=== PATIENT | male | born 1935 | race Caucasian/White ===

== ENCOUNTER 2017-11-30 06:07 | Day surgery (SDC) | payer MEDICARE, OTHER ==
[2017-11-30] MEDS ORDERED: Sodium Chloride 0.9% 10 ML Syringe FLUSH PRN (06:21)
[2017-11-30] MEDS ORDERED: Lidocaine 1%/Sod Bicarbonate in NS 8.4% 1 ML Syringe IDERM PRN (06:21)
[2017-11-30] MEDS ORDERED: Iodine/Sodium Iodide 2% Tincture 30 ML Bottle ONE (06:26)
[2017-11-30] MEDS ORDERED: ceFAZolin 1 GM Vial ONE ×2 (06:26→06:35)
[2017-11-30] MEDS ORDERED: Propofol 200 MG/20 ML SDV ONE ×2 (06:28→08:33)
[2017-11-30] MEDS ORDERED: Ketamine 500 mg/10 ML MDV ONE (06:29)
[2017-11-30] MEDS ORDERED: fentaNYL 100 MCG/2 ML SDV ONE (06:29)
[2017-11-30] MEDS ORDERED: Cyclobenzaprine 10 MG Tab PO PRN (06:42)
[2017-11-30] MEDS ORDERED: Magnesium Hydroxide 400 MG/5 ML Susp 30 ML Cup PO PRN (06:43)
[2017-11-30] MEDS ORDERED: Naloxone 0.4 MG/ML SDV IVPUSH PRN (06:43)
[2017-11-30] MEDS ORDERED: Morphine 2 MG/ML Syringe IVPUSH PRN (06:43)
[2017-11-30] MEDS ORDERED: Sennosides 8.6 MG Tab PO PRN (06:43)
[2017-11-30] MEDS ORDERED: Ondansetron 4 MG/2 ML SDV IVPUSH PRN ×2 (06:43→09:12)
[2017-11-30] MEDS ORDERED: Bisacodyl 5 MG Tab PO PRN (06:43)
[2017-11-30] MEDS: Lactated Ringers 1,000 ML IV SCH ×3 (06:45→15:37)
--- NOTE | 2017-11-30 07:02 | PCM.PREANE ---
Preanesthetic Assessment - Procedure Proposed Procedure: Right TKR - Anesthesia/Transfusion/Family Hx Anesthesia History: No Prior Anesthesia Family History of Anesthesia Reaction: No Transfusion History: No Prior Transfusion(s) - Review of Systems General: No Symptoms Pulmonary: No Symptoms Cardiovascular: Other (HTN, HLD) Gastrointestinal: No Symptoms Neurological: No Symptoms Other: Reports: Diabetes (DM2- contorlled with oral meds) - Physical Assessment NPO Status Date: 11/29/17 NPO Status Time: 23:00 Pulse: 57 O2 Sat by Pulse Oximetry: 93 Respiratory Rate: 16 Blood Pressure: 153/82 Temperature: 36.3 C Height: 1.78 m Weight: 112 kg ASA Class: 2 Mental Status: Alert & Oriented x3 Airway Class: Mallampati = 2 Dentition: Reports: Missing Tooth/Teeth (missing a few molars ) Thyro-Mental Finger Breadths: 3 Mouth Opening Finger Breadths: 3 ROM/Head Extension: Full Lungs: Clear to Auscultation, Normal Respiratory Effort Cardiovascular: Regular Rate, Regular Rhythm - Lab Values: Laboratory Last Values POC Glucose 103 mg/dL (83-110) 11/30/17 06:43 MRSA (PCR) Negative 11/13/17 13:16 - Allergies Allergies/Adverse Reactions: Allergies Allergy/AdvReac Type Severity Reaction Status Date / Time No Known Allergies Allergy Verified 11/27/17 15:30 - Blood Blood Available: No Product(s) Available: None - Anesthesia Plan Pre-Op Medication Ordered: None - Acknowledgements Anesthesia Type Planned: Spinal, Regional Block (post operative adductor canal block ) Pt an Appropriate Candidate for the Planned Anesthesia: Yes Alternatives and Risks of Anesthesia Discussed w Pt/Guardian: Yes Pt/Guardian Understands and Agrees with Anesthesia Plan: Yes PreAnesthesia Questionnaire HEENT History: Reports: None Cardiovascular History: Reports: High Cholesterol, Hypertension Respiratory History: Reports: Other (See Below) Other Respiratory History: dypsnea on exertion Gastrointestinal History: Reports: None Genitourinary History: Reports: None SOC[employer]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 MARKETER History: Reports: None Musculoskeletal History: Reports: Gout Neurological History: Reports: None Psychiatric History: Reports: None Endocrine/Metabolic History: Reports: Diabetes, Type II Hematologic History: Reports: None Immunologic History: Reports: None Oncologic (Cancer) History: Reports: None Dermatologic History: Reports: Other (See Below) Other Dermatologic History: seborrheic keratosis - Past Surgical History Head Surgeries/Procedures: Reports: None HEENT Surgical History: Reports: None Cardiovascular Surgical History: Reports: None Respiratory Surgical History: Reports: None GI Surgical History: Reports: Colonoscopy Male Surgical History: Reports: Vasectomy Endocrine Surgical History: Reports: None Neurological Surgical History: Reports: None Musculoskeletal Surgical History: Reports: None Oncologic Surgical History: Reports: None Dermatological Surgical History: Reports: None - SUBSTANCE USE Smoking Status *Q: Former Smoker Recreational Drug Use History: No - HOME MEDS Home Medications: Home Meds Aspirin [Adult Aspirin] 81 mg PO DAILY 11/27/17 [History] Cinnamon Bark [Cinnamon] 500 mg PO DAILY 11/27/17 [History] Enalapril [Vasotec] 2.5 mg PO DAILY 11/27/17 [History] Fenofibrate Nanocrystallized [Fenofibrate] 145 mg PO DAILY 11/27/17 [History] Furosemide 40 mg PO BID 11/27/17 [History] Ginkgo Biloba 40 mg PO DAILY 11/27/17 [History] Gluc/Aurelio-Msm#1/Vit C/Isaías/Bor [Ppfdbtl-Nqysw-GHH Complex Cplt] 1 tab PO BID [History] Linagliptin [Tradjenta] 5 mg PO DAILY 11/27/17 [History] Niacin 50 mg PO DAILY 11/27/17 [History] Pravastatin Sodium 40 mg PO DAILY 11/27/17 [History] glipiZIDE [Glipizide Xl] 20 mg PO BID 11/27/17 [History] metFORMIN HCl [Metformin HCl] 1,000 mg PO BID 11/27/17 [History] - CURRENT (IN HOUSE) MEDS Current Meds: Current Medications Bisacodyl (Dulcolax) 5 mg PO DAILY PRN PRN Reason: Constipation Morphine Sulfate 8 mg/Epinephrine HCl 0.3 mg/Cefuroxime Sodium 750 mg/Ketorolac Tromethamine 30 mg/Sodium Chloride 27.9 ml 0 mg .XX ONETIME ONE Stop: 11/30/17 06:43 Cyclobenzaprine HCl (Flexeril) 10 mg PO TID PRN PRN Reason: Spasms Docusate Sodium (Colace) 100 mg PO BID [facility] Famotidine (Pepcid) 20 mg PO Q12H [facility] Lactated Ringer's (Ringers, Lactated) 1,000 mls @ 125 mls/hr IV ASDIRECTED [facility] Cefazolin Sodium/Dextrose 2 gm (/ Premix) 50 mls @ 100 mls/hr IV Q8H [facility] Stop: 11/30/17 23:14 Ketorolac Tromethamine (Toradol) 15 mg IVPUSH Q6H PRN PRN Reason: Pain Lidocaine/Sodium Bicarbonate (Buffered Lidocaine 1% In Ns 8.4%) 0.25 ml IDERM ONETIME PRN PRN Reason: Prior to IV Start Magnesium Hydroxide (Milk Of Magnesia) 30 ml PO BID PRN PRN Reason: Constipation Morphine Sulfate (Morphine) 2 mg IVPUSH Q2H PRN PRN Reason: Breakthrough Pain Naloxone HCl (Narcan) 0.1 mg IVPUSH Q5M PRN PRN Reason: Oversedation Ondansetron HCl (Zofran) 4 mg IVPUSH Q6H PRN PRN Reason: Nausea/Vomiting Oxycodone/Acetaminophen (Percocet 325-5 Mg) 1 - 2 tab PO Q4H PRN PRN Reason: Pain Rivaroxaban (Xarelto) 10 mg PO DAILY [facility] Senna (Senna) 8.6 mg PO BID PRN PRN Reason: Constipation Sodium Chloride (Saline Flush) 10 ml FLUSH ASDIRECTED PRN PRN Reason: Keep Vein Open Discontinued Medications Bupivacaine HCl (Marcaine 0.25%) Confirm Administered Dose 30 ml .ROUTE .STK- MED ONE Stop: 11/30/17 06:27 Cefazolin Sodium (Ancef) Confirm Administered Dose 2 gm .ROUTE .STK-MED ONE Stop: 11/30/17 06:27 Cefazolin Sodium (Ancef) Confirm Administered Dose 2 gm .ROUTE .STK-MED ONE Stop: 11/30/17 06:36 Fentanyl (Sublimaze) Confirm Administered Dose 100 mcg .ROUTE .STK-MED ONE Stop: 11/30/17 06:30 Iodine (Iodine 2% Mild Tincture) Confirm Administered Dose 30 ml .ROUTE .STK- MED ONE Stop: 11/30/17 06:27 Ketamine HCl (Ketalar) Confirm Administered Dose 500 mg .ROUTE .STK-MED ONE Stop: 11/30/17 06:30 Propofol (Diprivan 20 Ml) Confirm Administered Dose 400 mg .ROUTE .STK-MED ONE Stop: 11/30/17 06:29 Tranexamic Acid (Cyklokapron) Confirm Administered Dose 1,000 mg .ROUTE .STK- MED ONE Stop: 11/30/17 06:27 Vancomycin HCl (Vancomycin) Confirm Administered Dose 1 gm .ROUTE .STK-MED ONE Stop: 11/30/17 06:27
[2017-11-30] MEDS ORDERED: Ropivacaine 0.5% 5 MG/ML 30 ML SDV ONE (07:33)
[2017-11-30] MEDS ORDERED: EPINEPHrine 1 MG/ML SDV ONE (07:33)
[2017-11-30] MEDS ORDERED: Lidocaine 1% 4 ML ONE (07:34)
[2017-11-30] MEDS: Bupivacaine 0.25% 30 ML SDV ONE ×2 (08:25→08:30)
[2017-11-30] MEDS: Morphine 8 MG, EPINEPHrine 0.3 MG, Cefuroxime 750 MG, Ketorolac 30 MG, Sodium Chloride ... ONE ×10 (08:25→08:30)
[2017-11-30] MEDS: Vancomycin 1 GM SDV ONE ×2 (08:26→08:33)
[2017-11-30] MEDS ORDERED: Lactated Ringers 1,000 ML ONE (09:03)
[2017-11-30] MEDS ORDERED: Meperidine 50 MG/ML Vial IVPUSH PRN (09:12)
[2017-11-30] MEDS ORDERED: diphenhydrAMINE 50 MG/ML SDV IVPUSH PRN (09:12)
[2017-11-30] MEDS ORDERED: fentaNYL 100 MCG/2 ML SDV IVPUSH PRN (09:12)
--- NOTE | 2017-11-30 09:12 | PCM.POSTAN ---
POST ANESTHESIA ASSESSMENT - MENTAL STATUS Mental Status: Alert, Oriented - VITAL SIGNS Pulse Rate: 60 SaO2: 96 Resp Rate: 14 Blood Pressure: 122/62 Temperature: 36.4 C - RESPIRATORY Respiratory Status: Respiratory Rate WNL, Airway Patent, O2 Saturation Stable, Supplemental Oxygen - CARDIOVASCULAR CV Status: Pulse Rate WNL, Blood Pressure Stable - GASTROINTESTINAL GI Status: No Symptoms - PAIN Pain Score: 0 - POST OP HYDRATION Hydration Status: Adequate & Stable
--- NOTE | 2017-11-30 09:41 | PCM.SN ---
- Free Text/Narrative Note: Right selective femoral nerve block at the adductor canal for post-procedure pain control Time Out: 922 Start: 926 End: 930 Chart reviewed. Consent signed. Questions answered. Appropriate monitors applied. Time out performed. Right mid-shaft femur evaluated with ultrasound. Scanning medially femur, I was able to identify the femoral artery in the adductor canal. The saphenous nerve was lateral to the artery. The skin was prepped lateral to the ultrasound probe with chlorahexadine. The 21ga 4 insulated block needle was inserted under direct ultrasound guidance into the adductor canal. 20mL of 0.5% ropivacaine with 1:200,000 epinephrine was injected cirmcumferentially about the nerve with intermittent negative aspiration every 5mL. Patient tolerated the procedure well. See pictures on progress note and vital signs on nurses notes. Block completed postoperatively. Seth Xiao CRNA
--- NOTE | 2017-11-30 10:30 | CR ---
Right knee: AP and lateral views of the right knee were obtained. Comparison: No previous knee exam. Knee prosthesis is seen. Components are aligned. Soft tissue air is noted from the surgical procedure. No acute bony abnormality is seen. Impression: 1. Satisfactory appearance of recently placed right knee prosthesis. Diagnostic code #2
[2017-11-30] MEDS: Famotidine 20 MG Tab PO SCH ×2 (12:09→18:48)
[2017-11-30] MEDS: Ketorolac 15 MG/ML SDV IVPUSH PRN (14:12)
[2017-11-30] MEDS: ceFAZolin 2 GM in Premix Bag 1 BAG IV SCH ×2 (14:21→22:58)
--- NOTE | 2017-11-30 18:52 | PCM.SN ---
- Free Text/Narrative Note: In to see Jarrell. Overall he is doing well s/p R TKA day 0. He currently states his pain is controlled. Denies F/C, Headache, N/V/D, Chest pain, SOB, Cough. Working with Physical Therapy. Urinating. Using Incentive Spirometry. Campos. No supplemental O2. DVT prophylaxis. Physical Exam unremarkable- PERRLA, Lungs Clear, Normal Heart sounds, Neurovascularly intact in extremities with 2+ pulses. No other concerns from nursing.
[2017-11-30] MEDS: Acetaminophen/oxyCODONE 325-5 MG Tab PO PRN (19:50)
[2017-11-30] MEDS ORDERED: [UNRECOGNIZED DRUG - OTHER] PO SCH (21:00)
[2017-11-30] MEDS ORDERED: Fenofibrate Nanocrystallized 145 MG Tab PO SCH (21:00)
[2017-11-30] MEDS ORDERED: Simvastatin 20 MG Tab PO SCH (21:00)
[2017-11-30] MEDS: Furosemide 40 MG Tab PO SCH (21:16)
[2017-11-30] MEDS: metFORMIN 500 MG Tab PO SCH (21:16)
[2017-11-30] MEDS: Docusate Sodium 100 MG Cap PO SCH (21:16)
[2017-12-01] MEDS: Acetaminophen/oxyCODONE 325-5 MG Tab PO PRN ×3 (00:26→10:01)
[2017-12-01] MEDS: Famotidine 20 MG Tab PO SCH (06:12)
[2017-12-01] MEDS: ceFAZolin 2 GM in Premix Bag 1 BAG IV SCH (06:12)
--- NOTE | 2017-12-01 06:36 | PCM.CONSN ---
- General Info Date of Service: 12/01/17 Subjective Update: In to see Jarrell. He is lying in bed and doing well. No nursing or patient concerns. He reports pain is gone while lying still but worsens with walking. He otherwise feels good. Functional Status: Reports: Pain Controlled, Tolerating Diet, Ambulating, Urinating, Incentive Spirometry. Denies: New Symptoms - Review of Systems General: Reports: No Symptoms. Denies: Weakness, Fatigue, Malaise HEENT: Reports: No Symptoms Pulmonary: Reports: No Symptoms. Denies: Shortness of Breath, Cough, Sputum, Wheezing Cardiovascular: Reports: No Symptoms. Denies: Chest Pain, Palpitations Gastrointestinal: Reports: No Symptoms. Denies: Abdominal Pain, Constipation, Nausea, Vomiting Genitourinary: Reports: No Symptoms Musculoskeletal: Reports: Joint Pain Skin: Reports: No Symptoms Neurological: Reports: No Symptoms. Denies: Confusion Psychiatric: Reports: No Symptoms - Patient Data Vitals - Most Recent: Last Vital Signs Temp 98.4 F 12/01/17 00:00 Pulse 62 12/01/17 00:00 Resp 18 12/01/17 00:00 BP 129/72 12/01/17 00:00 Pulse Ox 91 L 12/01/17 00:00 Weight - Most Recent: 246 lb 14.684 oz I&O - Last 24 Hours: Intake & Output 11/30/17 11/30/17 12/01/17 14:59 22:59 06:59 Intake Total 500 180 Output Total 625 300 350 Balance -125 -120 -350 Lab Results Last 24 Hours: Laboratory Results - last 24 hr 11/30/17 Range/Units 06:43 POC Glucose 103 (83-110) mg/dL Med Orders - Current: Current Medications Alogliptin Benzoate (Alogliptin) 25 mg PO DAILY [facility] Aspirin (Halfprin) 81 mg PO DAILY [facility] Bisacodyl (Dulcolax) 5 mg PO DAILY PRN PRN Reason: Constipation Cyclobenzaprine HCl (Flexeril) 10 mg PO TID PRN PRN Reason: Spasms Docusate Sodium (Colace) 100 mg PO BID [facility] Last Admin: 11/30/17 21:16 Dose: 100 mg Enalapril Maleate (Vasotec) 2.5 mg PO DAILY [facility] Famotidine (Pepcid) 20 mg PO Q12H [facility] Last Admin: 12/01/17 06:12 Dose: 20 mg Fenofibrate (Tricor) 145 mg PO BEDTIME [facility] Last Admin: 11/30/17 21:16 Dose: 145 mg Furosemide (Lasix) 40 mg PO BID [facility] Last Admin: 11/30/17 21:16 Dose: 40 mg Glipizide (Glucotrol) 20 mg PO BID [facility] Last Admin: 11/30/17 21:17 Dose: 20 mg Lactated Ringer's (Ringers, Lactated) 1,000 mls @ 125 mls/hr IV ASDIRECTED [facility] Last Admin: 11/30/17 15:37 Dose: 125 mls/hr Cefazolin Sodium/Dextrose 2 gm (/ Premix) 50 mls @ 100 mls/hr IV Q8H [facility] Stop: 12/01/17 06:59 Last Admin: 12/01/17 06:12 Dose: 100 mls/hr Ketorolac Tromethamine (Toradol) 15 mg IVPUSH Q6H PRN PRN Reason: Pain Last Admin: 11/30/17 14:12 Dose: 15 mg Magnesium Hydroxide (Milk Of Magnesia) 30 ml PO BID PRN PRN Reason: Constipation Metformin HCl (Glucophage) 1,000 mg PO BID [facility] Last Admin: 11/30/17 21:16 Dose: 1,000 mg Morphine Sulfate (Morphine) 2 mg IVPUSH Q2H PRN PRN Reason: Breakthrough Pain Naloxone HCl (Narcan) 0.1 mg IVPUSH Q5M PRN PRN Reason: Oversedation Ondansetron HCl (Zofran) 4 mg IVPUSH Q6H PRN PRN Reason: Nausea/Vomiting Oxycodone/Acetaminophen (Percocet 325-5 Mg) 1 - 2 tab PO Q4H PRN PRN Reason: Pain Last Admin: 12/01/17 03:59 Dose: 2 tab Rivaroxaban (Xarelto) 10 mg PO DAILY [facility] Senna (Senna) 8.6 mg PO BID PRN PRN Reason: Constipation Simvastatin (Zocor) 20 mg PO BEDTIME [facility] Last Admin: 11/30/17 21:16 Dose: 20 mg Sodium Chloride (Saline Flush) 10 ml FLUSH ASDIRECTED PRN PRN Reason: Keep Vein Open Discontinued Medications Bupivacaine HCl (Marcaine 0.25%) Confirm Administered Dose 30 ml .ROUTE .STK- MED ONE Stop: 11/30/17 06:27 Last Admin: 11/30/17 08:30 Dose: 30 ml Cefazolin Sodium (Ancef) Confirm Administered Dose 2 gm .ROUTE .STK-MED ONE Stop: 11/30/17 06:27 Last Admin: 11/30/17 08:27 Dose: 2 gm Cefazolin Sodium (Ancef) Confirm Administered Dose 2 gm .ROUTE .STK-MED ONE Stop: 11/30/17 06:36 Morphine Sulfate 8 mg/Epinephrine HCl 0.3 mg/Cefuroxime Sodium 750 mg/Ketorolac Tromethamine 30 mg/Sodium Chloride 27.9 ml 0 mg .XX ONETIME ONE Stop: 11/30/17 07:31 Last Admin: 11/30/17 08:30 Dose: 788.3 mg Diphenhydramine HCl (Benadryl) 25 mg IVPUSH Q6H PRN PRN Reason: Pruritis Stop: 11/30/17 12:00 Epinephrine HCl (Adrenalin) Confirm Administered Dose 1 mg .ROUTE .STK-MED ONE Stop: 11/30/17 07:34 Fentanyl (Sublimaze) Confirm Administered Dose 100 mcg .ROUTE .STK-MED ONE Stop: 11/30/17 06:30 Fentanyl (Sublimaze) 50 mcg IVPUSH Q5M PRN PRN Reason: Pain Stop: 11/30/17 12:00 Glycopyrrolate () Confirm Administered Dose 1 mg .ROUTE .STK-MED ONE Stop: 11/30/17 07:32 Lidocaine HCl (Xylocaine-Mpf 1%) Confirm Administered Dose 4 mls @ as directed .ROUTE .STK-MED ONE Stop: 11/30/17 07:35 Lactated Ringer's (Ringers, Lactated) Confirm Administered Dose 1,000 mls @ as directed .ROUTE .STK-MED ONE Stop: 11/30/17 09:04 Iodine (Iodine 2% Mild Tincture) Confirm Administered Dose 30 ml .ROUTE .STK- MED ONE Stop: 11/30/17 06:27 Last Admin: 11/30/17 08:25 Dose: 18 ml Ketamine HCl (Ketalar) Confirm Administered Dose 500 mg .ROUTE .STK-MED ONE Stop: 11/30/17 06:30 Lidocaine/Sodium Bicarbonate (Buffered Lidocaine 1% In Ns 8.4%) 0.25 ml IDERM ONETIME PRN PRN Reason: Prior to IV Start Last Admin: 11/30/17 06:45 Dose: 0.25 ml Meperidine HCl (Meperidine) 12.5 mg IVPUSH ONETIME PRN PRN Reason: Shivering Stop: 11/30/17 12:00 Non-Formulary Medication (Ginkgo Biloba [Ginkgo Biloba]) 40 mg PO DAILY [facility] Non-Formulary Medication (Gluc/Aurelio-Msm#1/Vit C/Isaías/Bor [Bmbzllp-Bwrwp-Hes Complex Cplt]) 1 tab PO BID [facility] Non-Formulary Medication (Niacin [Niacin]) 50 mg PO DAILY [facility] Ondansetron HCl (Zofran) 4 mg IVPUSH ONETIME PRN PRN Reason: Nausea/Vomiting Stop: 11/30/17 12:00 Propofol (Diprivan 20 Ml) Confirm Administered Dose 400 mg .ROUTE .STK-MED ONE Stop: 11/30/17 06:29 Propofol (Diprivan 20 Ml) Confirm Administered Dose 200 mg .ROUTE .STK-MED ONE Stop: 11/30/17 08:34 Ropivacaine (Naropin 0.5%) Confirm Administered Dose 30 ml .ROUTE .STK-MED ONE Stop: 11/30/17 07:34 Tranexamic Acid (Cyklokapron) Confirm Administered Dose 1,000 mg .ROUTE .STK- MED ONE Stop: 11/30/17 06:27 Last Admin: 11/30/17 08:37 Dose: 1,000 mg Vancomycin HCl (Vancomycin) Confirm Administered Dose 1 gm .ROUTE .STK-MED ONE Stop: 11/30/17 06:27 Last Admin: 11/30/17 08:33 Dose: 1 gm - Exam Quality Assessment: DVT Prophylaxis General: Alert, Oriented, Cooperative, No Acute Distress HEENT: Pupils Equal, Pupils Reactive, EOMI, Mucous Membr. Moist/[place] Neck: Supple, Trachea Midline, No JVD Lungs: Clear to Auscultation, Normal Respiratory Effort Cardiovascular: Regular Rate, Regular Rhythm GI/Abdominal Exam: Normal Bowel Sounds, Soft, Non-Tender, No Organomegaly, No Distention (Male) Exam: Deferred Back Exam: Normal Inspection, Full Range of Motion Extremities: No Pedal Edema, Normal Capillary Refill, Leg Pain, Limited Range of Motion, Other (Bandage in place on right leg. Cooling pack in place. ) Peripheral Pulses: 2+: Radial (L), Radial (R), Dorsalis Pedis (L), Dorsalis Pedis (R) Skin: Warm, Dry, Intact Wound/Incisions: Dressing Dry and Intact, No Drainage Neurological: No New Focal Deficit Psy/Mental Status: Alert, Normal Affect, Normal Mood Consult PN Assessment/Plan POD#: 1 Procedures: Procedures ASSAY OF PREALBUMIN (11/11/17) ASSAY THYROID STIM HORMONE (09/02/17) CARDIOVASCULAR STRESS TEST (11/18/17) COMPLETE CBC AUTOMATED (02/18/17) COMPLETE CBC W/AUTO DIFF WBC (11/11/17) COMPREHEN METABOLIC PANEL (11/11/17) DESTRUCT B9 LESION 1-14 (09/02/17) DXA BONE DENSITY AXIAL (11/26/17) GLYCOSYLATED HEMOGLOBIN TEST (11/11/17) HT MUSCLE IMAGE SPECT MULT (11/18/17) LIPID PANEL (09/02/17) OFFICE/OUTPATIENT VISIT EST (09/02/17) OFFICE/OUTPATIENT VISIT EST (02/18/17) OFFICE/OUTPATIENT VISIT EST (08/19/16) PROTHROMBIN TIME (11/11/17) ROUTINE VENIPUNCTURE (11/11/17) THROMBOPLASTIN TIME PARTIAL (11/11/17) TISSUE EXAM BY PATHOLOGIST (10/03/14) TTE W/DOPPLER COMPLETE (11/18/17) X-RAY EXAM CHEST 2 VIEWS (11/11/17) (1) S/P total knee arthroplasty SNOMED Code(s): 1128154328992, 559354344, 7960604864627 Code(s): Z96.659 - PRESENCE OF UNSPECIFIED ARTIFICIAL KNEE JOINT Priority: High Current Visit: Yes Qualifiers: Laterality: right Qualified Code(s): Z96.651 - Presence of right artificial knee joint (2) Osteoarthritis SNOMED Code(s): 292906727 Code(s): M19.90 - UNSPECIFIED OSTEOARTHRITIS, UNSPECIFIED SITE Priority: High Current Visit: Yes Qualifiers: Osteoarthritis location: knee Osteoarthritis type: primary Laterality: right Qualified Code(s): M17.11 - Unilateral primary osteoarthritis, right knee (3) HLD (hyperlipidemia) SNOMED Code(s): 81037655 Code(s): E78.5 - HYPERLIPIDEMIA, UNSPECIFIED Priority: Low Current Visit : No Qualifiers: Hyperlipidemia type: unspecified Qualified Code(s): E78.5 - Hyperlipidemia , unspecified (4) HTN (hypertension) SNOMED Code(s): 49132029 Code(s): I10 - ESSENTIAL (PRIMARY) HYPERTENSION Priority: Medium Current Visit: No Qualifiers: Hypertension type: unspecified Qualified Code(s): I10 - Essential (primary ) hypertension (5) Type II diabetes mellitus SNOMED Code(s): 08874196 Code(s): E11.9 - TYPE 2 DIABETES MELLITUS WITHOUT COMPLICATIONS Priority: Medium Current Visit: Yes Qualifiers: 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 Diabetes mellitus complication status: with unspecified complications Qualified Code(s) : E11.8 - Type 2 diabetes mellitus with unspecified complications (6) History of prostate cancer SNOMED Code(s): 512926343 Code(s): Z85.46 - PERSONAL HISTORY OF MALIGNANT NEOPLASM OF PROSTATE Priority: Low Current Visit: No (7) History of venous thromboembolism SNOMED Code(s): 399905198 Code(s): Z86.718 - PERSONAL HISTORY OF OTHER VENOUS THROMBOSIS AND EMBOLISM Priority: Medium Current Visit: No Problem List Initiated/Reviewed/Updated: Yes Plan: I/P: Acute: S/P right total knee arthroplasty - post-operative day 1 -DVT prophylaxis and pain management per primary care team -PT/OT -IS/RT -Monitor oxygen saturation -Titrate oxygen as needed -Vital signs stable -Monitor labs -Pre-operative Hgb was 13.2, now 10.7 -Pre-operative GFR was 58, now Osteoarthritis of right knee -Pain management per primary care team Chronic: HTN HLD Type II DM Hx/o prostate cancer mild renal insufficiency Hx/o VTE Plan: CM for discharge planning GI prophylaxis Home medications as indicated Other orders as listed above Routine AM labs He is a full code. His PCP is Fara Gabriel NP Overall from a hospitalist standpoint Jarrell is doing well. Labs and vital signs have been stable and pain is controlled. He has been up working with therapies. He has urinated and he is off oxygen. He has been utilizing his IS. He is cleared from discharge pending primary team and PT/OT approval. Thank you for allowing us to participate in the care of this patient!!
--- NOTE | 2017-12-01 07:45 | PCM.SURGPN ---
- General Info Date of Service: 12/01/17 POD#: 1 Functional Status: Reports: Pain Controlled, Tolerating Diet, Ambulating, Urinating, Incentive Spirometry, Other (The pt reports pain is tolerable.) - Patient Data Vitals - Most Recent: Last Vital Signs Temp 98.4 F 12/01/17 00:00 Pulse 62 12/01/17 00:00 Resp 18 12/01/17 00:00 BP 129/72 12/01/17 00:00 Pulse Ox 91 L 12/01/17 00:00 Weight - Most Recent: 246 lb 14.684 oz I&O - Last 24 Hours: Intake & Output 11/30/17 12/01/17 12/01/17 22:59 06:59 14:59 Intake Total 180 Output Total 300 350 Balance -120 -350 Lab Results Last 24 Hrs: Laboratory Results - last 24 hr 12/01/17 12/01/17 Range/Units 06:30 06:30 WBC 8.16 (4.23-9.07) K/mm3 RBC 4.10 L (4.63-6.08) M/mm3 Hgb 10.7 L (13.7-17.5) gm/L Hct 33.8 L (40.1-51.0) % MCV 82.4 (79.0-92.2) fl MCH 26.1 (25.7-32.2) pg MCHC 31.7 L (32.2-35.5) g/dl RDW Std Deviation 49.0 H (35.1-43.9) fL Plt Count 224 (163-337) K/mm3 MPV 11.9 (9.4-12.3) fl Sodium 137 (136-145) mEq/L Potassium 4.3 (3.5-5.1) mEq/L Chloride 105 (98-107) mEq/L Carbon Dioxide 26 (21-32) mEq/L Anion Gap 10.3 (5-15) BUN 27 H (7-18) mg/dL Creatinine 1.2 (0.7-1.3) mg/dL Est Cr Clr Drug Dosing 50.69 mL/min Estimated GFR (MDRD) 58 (>60) mL/min BUN/Creatinine Ratio 22.5 H (14-18) Glucose 160 H (83-115) mg/dL Calcium 8.7 (8.5-10.1) mg/dL Total Bilirubin 0.4 (0.2-1.0) mg/dL AST 29 (15-37) U/L ALT 30 (16-63) U/L Alkaline Phosphatase 26 L (46-116) U/L Total Protein 5.8 L (6.4-8.2) g/dl Albumin 2.8 L (3.4-5.0) g/dl Globulin 3.0 gm/dL Albumin/Globulin Ratio 0.9 L (1-2) Med Orders - Current: Current Medications Alogliptin Benzoate (Alogliptin) 25 mg PO DAILY [facility] Aspirin (Halfprin) 81 mg PO DAILY [facility] Bisacodyl (Dulcolax) 5 mg PO DAILY PRN PRN Reason: Constipation Cyclobenzaprine HCl (Flexeril) 10 mg PO TID PRN PRN Reason: Spasms Docusate Sodium (Colace) 100 mg PO BID [facility] Last Admin: 11/30/17 21:16 Dose: 100 mg Enalapril Maleate (Vasotec) 2.5 mg PO DAILY [facility] Famotidine (Pepcid) 20 mg PO Q12H [facility] Last Admin: 12/01/17 06:12 Dose: 20 mg Fenofibrate (Tricor) 145 mg PO BEDTIME [facility] Last Admin: 11/30/17 21:16 Dose: 145 mg Furosemide (Lasix) 40 mg PO BID [facility] Last Admin: 11/30/17 21:16 Dose: 40 mg Glipizide (Glucotrol) 20 mg PO BID [facility] Last Admin: 11/30/17 21:17 Dose: 20 mg Lactated Ringer's (Ringers, Lactated) 1,000 mls @ 125 mls/hr IV ASDIRECTED [facility] Last Admin: 11/30/17 15:37 Dose: 125 mls/hr Ketorolac Tromethamine (Toradol) 15 mg IVPUSH Q6H PRN PRN Reason: Pain Last Admin: 11/30/17 14:12 Dose: 15 mg Magnesium Hydroxide (Milk Of Magnesia) 30 ml PO BID PRN PRN Reason: Constipation Metformin HCl (Glucophage) 1,000 mg PO BID [facility] Last Admin: 11/30/17 21:16 Dose: 1,000 mg Morphine Sulfate (Morphine) 2 mg IVPUSH Q2H PRN PRN Reason: Breakthrough Pain Naloxone HCl (Narcan) 0.1 mg IVPUSH Q5M PRN PRN Reason: Oversedation Ondansetron HCl (Zofran) 4 mg IVPUSH Q6H PRN PRN Reason: Nausea/Vomiting Oxycodone/Acetaminophen (Percocet 325-5 Mg) 1 - 2 tab PO Q4H PRN PRN Reason: Pain Last Admin: 12/01/17 03:59 Dose: 2 tab Rivaroxaban (Xarelto) 10 mg PO DAILY [facility] Senna (Senna) 8.6 mg PO BID PRN PRN Reason: Constipation Simvastatin (Zocor) 20 mg PO BEDTIME [facility] Last Admin: 11/30/17 21:16 Dose: 20 mg Sodium Chloride (Saline Flush) 10 ml FLUSH ASDIRECTED PRN PRN Reason: Keep Vein Open Discontinued Medications Bupivacaine HCl (Marcaine 0.25%) Confirm Administered Dose 30 ml .ROUTE .STK- MED ONE Stop: 11/30/17 06:27 Last Admin: 11/30/17 08:30 Dose: 30 ml Cefazolin Sodium (Ancef) Confirm Administered Dose 2 gm .ROUTE .STK-MED ONE Stop: 11/30/17 06:27 Last Admin: 11/30/17 08:27 Dose: 2 gm Cefazolin Sodium (Ancef) Confirm Administered Dose 2 gm .ROUTE .STK-MED ONE Stop: 11/30/17 06:36 Morphine Sulfate 8 mg/Epinephrine HCl 0.3 mg/Cefuroxime Sodium 750 mg/Ketorolac Tromethamine 30 mg/Sodium Chloride 27.9 ml 0 mg .XX ONETIME ONE Stop: 11/30/17 07:31 Last Admin: 11/30/17 08:30 Dose: 788.3 mg Diphenhydramine HCl (Benadryl) 25 mg IVPUSH Q6H PRN PRN Reason: Pruritis Stop: 11/30/17 12:00 Epinephrine HCl (Adrenalin) Confirm Administered Dose 1 mg .ROUTE .STK-MED ONE Stop: 11/30/17 07:34 Fentanyl (Sublimaze) Confirm Administered Dose 100 mcg .ROUTE .STK-MED ONE Stop: 11/30/17 06:30 Fentanyl (Sublimaze) 50 mcg IVPUSH Q5M PRN PRN Reason: Pain Stop: 11/30/17 12:00 Glycopyrrolate () Confirm Administered Dose 1 mg .ROUTE .STK-MED ONE Stop: 11/30/17 07:32 Cefazolin Sodium/Dextrose 2 gm (/ Premix) 50 mls @ 100 mls/hr IV Q8H [facility] Stop: 12/01/17 06:59 Last Admin: 12/01/17 06:12 Dose: 100 mls/hr Lidocaine HCl (Xylocaine-Mpf 1%) Confirm Administered Dose 4 mls @ as directed .ROUTE .STK-MED ONE Stop: 11/30/17 07:35 Lactated Ringer's (Ringers, Lactated) Confirm Administered Dose 1,000 mls @ as directed .ROUTE .STK-MED ONE Stop: 11/30/17 09:04 Iodine (Iodine 2% Mild Tincture) Confirm Administered Dose 30 ml .ROUTE .STK- MED ONE Stop: 11/30/17 06:27 Last Admin: 11/30/17 08:25 Dose: 18 ml Ketamine HCl (Ketalar) Confirm Administered Dose 500 mg .ROUTE .STK-MED ONE Stop: 11/30/17 06:30 Lidocaine/Sodium Bicarbonate (Buffered Lidocaine 1% In Ns 8.4%) 0.25 ml IDERM ONETIME PRN PRN Reason: Prior to IV Start Last Admin: 11/30/17 06:45 Dose: 0.25 ml Meperidine HCl (Meperidine) 12.5 mg IVPUSH ONETIME PRN PRN Reason: Shivering Stop: 11/30/17 12:00 Non-Formulary Medication (Ginkgo Biloba [Ginkgo Biloba]) 40 mg PO DAILY [facility] Non-Formulary Medication (Gluc/Aurelio-Msm#1/Vit C/Isaías/Bor [[id number] Complex Cplt]) 1 tab PO BID [facility] Non-Formulary Medication (Niacin [Niacin]) 50 mg PO DAILY [facility] Ondansetron HCl (Zofran) 4 mg IVPUSH ONETIME PRN PRN Reason: Nausea/Vomiting Stop: 11/30/17 12:00 Propofol (Diprivan 20 Ml) Confirm Administered Dose 400 mg .ROUTE .STK-MED ONE Stop: 11/30/17 06:29 Propofol (Diprivan 20 Ml) Confirm Administered Dose 200 mg .ROUTE .STK-MED ONE Stop: 11/30/17 08:34 Ropivacaine (Naropin 0.5%) Confirm Administered Dose 30 ml .ROUTE .STK-MED ONE Stop: 11/30/17 07:34 Tranexamic Acid (Cyklokapron) Confirm Administered Dose 1,000 mg .ROUTE .STK- MED ONE Stop: 11/30/17 06:27 Last Admin: 11/30/17 08:37 Dose: 1,000 mg Vancomycin HCl (Vancomycin) Confirm Administered Dose 1 gm .ROUTE .STK-MED ONE Stop: 11/30/17 06:27 Last Admin: 11/30/17 08:33 Dose: 1 gm - Exam Wound/Incisions: Dressing Dry and Intact General: Alert, Cooperative, No Acute Distress Lungs: Normal Respiratory Effort Extremities: Other (NVS intact for RLE. Alon's negative.) - Problem List Review Problem List Initiated/Reviewed/Updated: Yes - My Orders Last 24 Hours: Active Orders 24 hr Category Date Time Status Cooling Warming Measures [RC] ASDIRECTED Care 11/30/17 09:12 Inactive Notify Provider Consults [RC] ASDIRECTED Care 11/30/17 06:45 Active Notify Provider [RC] ASDIRECTED Care 11/30/17 09:12 Active Ready for Discharge [RC] PER UNIT ROUTINE Care 12/01/17 07:43 Ordered Telemetry Monitoring [Cardiac Monitoring] [RC] . Care 11/30/17 09:59 Active DIRECTED Urinary Catheter Assessment [RC] ASDIRECTED Care 11/30/17 07:57 Active Vital Signs [RC] Q15M Care 11/30/17 09:12 Inactive Regular Diet [DIET] Diet 11/30/17 Lunch Active Alogliptin Benzoate [Alogliptin] Med 12/01/17 09:00 Active 25 mg PO DAILY Aspirin [Halfprin] Med 12/01/17 09:00 Active 81 mg PO DAILY Docusate Sodium [Colace] Med 11/30/17 21:00 Active 100 mg PO BID Enalapril [Vasotec] Med 12/01/17 09:00 Active 2.5 mg PO DAILY Famotidine [Pepcid] Med 11/30/17 06:45 Active 20 mg PO Q12H Fenofibrate Nanocrystallized [Tricor] Med 11/30/17 21:00 Active 145 mg PO BEDTIME Furosemide [Lasix] Med 11/30/17 21:00 Active 40 mg PO BID Rivaroxaban [Xarelto] Med 12/01/17 09:00 Active 10 mg PO DAILY Simvastatin [Zocor] Med 11/30/17 21:00 Active 20 mg PO BEDTIME glipiZIDE [Glucotrol] Med 11/30/17 21:00 Active 20 mg PO BID metFORMIN [Glucophage] Med 11/30/17 21:00 Active 1,000 mg PO BID Antiembolic Hose [OM.PC] Per Unit Routine Oth 11/30/17 06:45 Ordered Ice Therapy [OM.PC] Per Unit Routine Oth 11/30/17 06:44 Ordered Medication Orders Alogliptin Benzoate (Alogliptin) 25 mg PO DAILY [facility] Aspirin (Halfprin) 81 mg PO DAILY [facility] Bisacodyl (Dulcolax) 5 mg PO DAILY PRN PRN Reason: Constipation Cyclobenzaprine HCl (Flexeril) 10 mg PO TID PRN PRN Reason: Spasms Docusate Sodium (Colace) 100 mg PO BID [facility] Last Admin: 11/30/17 21:16 Dose: 100 mg Enalapril Maleate (Vasotec) 2.5 mg PO DAILY [facility] Famotidine (Pepcid) 20 mg PO Q12H [facility] Last Admin: 12/01/17 06:12 Dose: 20 mg Admin: 11/30/17 18:48 Dose: 20 mg Admin: 11/30/17 12:09 Dose: Not Given Fenofibrate (Tricor) 145 mg PO BEDTIME [facility] Last Admin: 11/30/17 21:16 Dose: 145 mg Furosemide (Lasix) 40 mg PO BID [facility] Last Admin: 11/30/17 21:16 Dose: 40 mg Glipizide (Glucotrol) 20 mg PO BID [facility] Last Admin: 11/30/17 21:17 Dose: 20 mg Lactated Ringer's (Ringers, Lactated) 1,000 mls @ 125 mls/hr IV ASDIRECTED [facility] Last Admin: 11/30/17 15:37 Dose: 125 mls/hr Infusion: 11/30/17 15:37 Dose: 125 mls/hr Admin: 11/30/17 09:51 Dose: 125 mls/hr Infusion: 11/30/17 09:51 Dose: 125 mls/hr Admin: 11/30/17 06:45 Dose: 125 mls/hr Ketorolac Tromethamine (Toradol) 15 mg IVPUSH Q6H PRN PRN Reason: Pain Last Admin: 11/30/17 14:12 Dose: 15 mg Magnesium Hydroxide (Milk Of Magnesia) 30 ml PO BID PRN PRN Reason: Constipation Metformin HCl (Glucophage) 1,000 mg PO BID [facility] Last Admin: 11/30/17 21:16 Dose: 1,000 mg Morphine Sulfate (Morphine) 2 mg IVPUSH Q2H PRN PRN Reason: Breakthrough Pain Naloxone HCl (Narcan) 0.1 mg IVPUSH Q5M PRN PRN Reason: Oversedation Ondansetron HCl (Zofran) 4 mg IVPUSH Q6H PRN PRN Reason: Nausea/Vomiting Oxycodone/Acetaminophen (Percocet 325-5 Mg) 1 - 2 tab PO Q4H PRN PRN Reason: Pain Last Admin: 12/01/17 03:59 Dose: 2 tab Admin: 12/01/17 00:26 Dose: 2 tab Admin: 11/30/17 19:50 Dose: 2 tab Rivaroxaban (Xarelto) 10 mg PO DAILY [facility] Senna (Senna) 8.6 mg PO BID PRN PRN Reason: Constipation Simvastatin (Zocor) 20 mg PO BEDTIME [facility] Last Admin: 11/30/17 21:16 Dose: 20 mg Sodium Chloride (Saline Flush) 10 ml FLUSH ASDIRECTED PRN PRN Reason: Keep Vein Open - Assessment Assessment (Free Text/Narrative):: POD#1 - right TKA - Plan Plan (Free Text/Narrative):: 1. Xarelto 10mg PO daily, frequent mobility, TEDs. Personal hx VTE. 2. Discharge to home today if therapy goals met and cleared by Hospitalist service. 3. Hgb 10.7 today. 4. Outpatient P.T. The pt's case was discussed with Dr. Escamilla.
[2017-12-01] MEDS: Ketorolac 15 MG/ML SDV IVPUSH PRN (08:04)
--- NOTE | 2017-12-01 08:06 | PCM48HPAN ---
Post Anesthesia Note - EVALUATION WITHIN 48HRS OF ANESTHETIC Vital Signs in Normal Range: Yes Patient Participated in Evaluation: Yes Respiratory Function Stable: Yes Airway Patent: Yes Cardiovascular Function Stable: Yes Hydration Status Stable: Yes Pain Control Satisfactory: Yes Nausea and Vomiting Control Satisfactory: Yes Mental Status Recovered: Yes - COMMENTS/OBSERVATIONS Free Text/Narrative:: Doing well. Patient denies any anesthetic complications
[2017-12-01] MEDS: Docusate Sodium 100 MG Cap PO SCH (08:36)
[2017-12-01] MEDS ORDERED: Aspirin 81 MG Tab.EC PO SCH (09:00)
[2017-12-01] MEDS ORDERED: GINKGO BILOBA 40 MG PO SCH (09:00)
[2017-12-01] MEDS ORDERED: NIACIN 50 MG PO SCH (09:00)
[2017-12-01] MEDS ORDERED: Rivaroxaban 10 MG Tab PO SCH (09:00)
[2017-12-01] MEDS: Furosemide 40 MG Tab PO SCH (09:12)
[2017-12-01] MEDS: metFORMIN 500 MG Tab PO SCH (09:12)
--- NOTE | 2017-12-07 14:38 | PCM.OPNOTE ---
- General Post-Op/Procedure Note Date of Surgery/Procedure: 11/30/17 Operative Procedure(s): right total knee arthroplasty Pre Op Diagnosis: right knee osteoarthrosis Post-Op Diagnosis: Same Anesthesia Technique: Local, MAC, Spinal Primary Surgeon: Eric Escamilla Anesthesia Provider: Seth Xiao Field Services Analyst: Lizabeth Melgoza Field Services Analyst: Cinthia Woodard in mLs: 5 Complications: None Condition: Good Free Text/Narrative:: size 6 femur size 7 tibia 11mm 35x10
--- NOTE | 2017-12-08 07:59 | OR ---
DATE OF OPERATION: 11/30/2017 SURGEON: Eric Escamilla MD OPERATION PERFORMED: Right total knee arthroplasty. PREOPERATIVE DIAGNOSIS: Right knee osteoarthrosis. POSTOPERATIVE DIAGNOSIS: Right knee osteoarthrosis. ANESTHESIA: Local MAC with spinal. ANESTHESIA PROVIDER: Seth Xiao. ASSISTANTS: Lizabeth Melgoza PA-C and Cinthia Woodard LPN. ESTIMATED BLOOD LOSS: 5 mL. COMPLICATIONS: None. CONDITION: Stable. IMPLANTS: 1. [place] size 6 cemented PS femur. 2. [place] size 7 cemented [place] tibial baseplate. 3. Devon size 7, 11 mm PS X3 polyethylene. 4. [place] size 35 x 10 mm cemented asymmetric patella. DESCRIPTION OF PROCEDURE: The patient was identified in the preop holding area. Proper site was marked and identified by the surgeon. The patient was taken back to the operating theater. After adequate anesthesia, the patient's right lower extremity had a nonsterile tourniquet applied and it was then sterilely prepped and draped in the usual sterile fashion. OR timeout was performed. The patient received 2 g IV Ancef. At this time, right lower extremity was exsanguinated. Tourniquet was insufflated to 300 mmHg. Standard medial parapatellar incision was made. Medial parapatellar arthrotomy was created. Deep fibers of the MCL were raised and anterior fat pad was resected. At this time, attention was turned to the patella. Patella measured 24, it was resected to a 14 for a 35 x 10 mm patella and that 10 mm was taken off the distal femur. Drill holes were then drilled and found to be in adequate position. The drill was then drilled in the distal femur and the intramedullary distal femoral cutting guide was then placed. 8 mm was resected off the distal femur and was found to be an adequate resection. Sizing guide was placed. It was found to be a size 6 femur that was shown on the implant record at the beginning of this dictation. The drill holes were drilled for the epicondylar axis using Whitesides line and epicondyles as reference. At this time, the 4-in-1 cutting block was placed. An anterior posterior and anterior and posterior chamfer cuts were then completed. The correct size box cut was then placed and the box cut was completed and found to be an adequate resection. Attention was turned to the tibia. The posterior medial lateral retractors were placed. The extramedullary tibial guide was placed. It was placed in the old footprint of the ACL. It was aligned with the center of the ankle and 0 degrees of slope, 9 mm was then resected off the unaffected lateral side. There was found to be an acceptable reduction. At this time, posterior osteophytes were removed along with medial and lateral meniscus. A trial implant was placed with a correct sized tibia that was mentioned at the beginning of the dictation. A [place] size 7, 11 mm PS X3 polyethylene was then placed. The patient's knee was brought through range of motion. The patella was tracking centrally and was stable to varus and valgus stress. Alignment was found to be roughly at 0 degrees. At this time, cement was mixed on the back table. The tibia was stamped and drilled in proper rotation. All cut surfaces were irrigated with pulse lavage irrigation with Ancef and then completely dried. Once this was completed, then the cement was ready. The universal tibial base plate was cemented in place. Next, the [place] size 6 cemented PS femur cemented into place and the [place] size 7, 11 mm PS X3 polyethylene was placed. The patient's knee was brought into full extension. Excess cement was removed. The patella was then cemented in place at this time. Tourniquet was deflated. One liter dilute Betadine solution was irrigated through the knee along with 3 L of pulse lavage irrigation with Ancef. Periarticular injection was then completed. The patient's knee was brought through a range of motion. Once the cement had time to set up and it was found to be stable to varus valgus stress, the patella was tracking centrally with full range of motion. At this time, a #2 barbed suture was used for closure of the medial parapatellar arthrotomy. Topical tranexamic acid was placed. 2-0 Vicryl was used subcutaneously, a running 3-0 Monocryl was used subcuticularly. The patient tolerated the procedure well and was sent to the PACU in stable condition. [facility] /[id number]
== END 2017-12-01 10:30 | disposition home or self-care (01) ==
LOC: JD.SDS 06:07 → JD.OB 06:07 → JD.SDS 12-01 10:30 → JD.OB 12-01 10:30
PROVIDERS: ATTEND Orthopaedic Surgery
DX: M17.0 Bilateral primary osteoarthritis of knee (principal); I10 Essential (primary) hypertension; E78.5 Hyperlipidemia, unspecified; E11.65 Type 2 diabetes mellitus with hyperglycemia; Z79.2 Long term (current) use of antibiotics; Z79.82 Long term (current) use of aspirin; Z79.84 Long term (current) use of oral hypoglycemic drugs; Z79.899 Other long term (current) drug therapy; Z87.891 Personal history of nicotine dependence
CPT/HCPCS: 27447; 36415; 64447; 73560; 80053; 82962; 85027; 87641; 97110; 97116; 97161; 97165; 97535; A9270; C1713; C1776; J0171; J0690; J0697; J1885; J2270; J2704; J2795; J3010; J3370; J3490; J7120; 01402; 64450; J2001